=== PATIENT | female | born 1995 | race African-American/Black ===

== ENCOUNTER 2016-09-05 07:00 | Outpatient (CLI) | payer OTHER ==
[~2016-09-05] VITALS: Ht 167.6 cm; Wt 75.0 kg
[2016-09-05 07:11] VITALS: BP 123/78
== END 2016-09-05 08:08 | disposition home or self-care (01) ==
LOC: M LDO 07:00
PROVIDERS: ATTEND Obstetrics & Gynecology
DX: O47.1 False labor at or after 37 completed weeks of gestation (principal); Z3A.38 38 weeks gestation of pregnancy

== ENCOUNTER 2016-09-05 11:10 | Inpatient (IN) | payer OTHER ==
[~2016-09-05] VITALS: Ht 167.6 cm; Wt 75.0 kg
[2016-09-05] VITALS (35 sets, daily range): BP systolic 116–143; BP diastolic 60–98
[2016-09-05] MEDS ORDERED: LACTATED RINGER'S 1000 ML IV STA (12:08)
[2016-09-05] MEDS ORDERED: LR 1,000 ML IV SCH (12:08)
[2016-09-05 12:26] LABS: MEAN CORPUSCULAR HEMOGLOBIN 28.4 pg (27.0-33.0); MEAN CORPUSCULAR HGB CONC 33.1 g/dl (32.0-36.5); MEAN CORPUSCULAR VOLUME 85.9 fl (80.0-96.0); RED CELL DISTRIBUTION WIDTH 14.2 % (11.5-14.5); WHITE BLOOD COUNT 13.4 K/mm3 (4.0-10.0)
[2016-09-05] MEDS ORDERED: FENTANYL 2MCG/ML ROPIVACAINE 0.2% IN 0.9% NACL 200ML IVBAG As Ordered ONE (13:05)
[2016-09-05] MEDS ORDERED: ePHEDrine SULFATE 25 MG/5 ML(5MG/ML) SYRINGE IV PRN (14:00)
[2016-09-05] MEDS ORDERED: LACTATED RINGER'S 1000 ML IV PRN (14:00)
[2016-09-05] MEDS ORDERED: diphenhydrAMINE INJ 50MG/ML VIAL (J1200) IV PRN (14:00)
[2016-09-05] MEDS ORDERED: REFRIGERATOR IV KEYS XX PRN (14:00)
[2016-09-05] MEDS ORDERED: EPIDURAL COMMENT XX SCH (14:00)
[2016-09-05] MEDS ORDERED: NALOXONE INJ 0.4 MG/1 ML VIAL (J2310) IV PRN (14:00)
[2016-09-05] MEDS ORDERED: ONDANSETRON 4MG/2ML VIAL (J2405) IV PRN (14:00)
[2016-09-05] MEDS ORDERED: FENTANYL/ROPIVACAINE/NACL BAG 200 ML EPIDURAL SCH (14:00)
[2016-09-05] MEDS ORDERED: EPIDURAL/PCA KEYS XX PRN (14:00)
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
--- NOTE | 2016-09-05 15:49 | IPNPDOC ---
Text Note Date of Service The patient was seen on 09/05/16. NOTE after epidural checked by RN 2 hrs ago, was 4-5 cm. NST Cat 1, reg ctx's Cx 6/100/0, AROM clear doing well recheck in 2 hrs,sooner prn Sessions VS,Arlin, I+O VS, Arlin, I+O Laboratory Tests 09/05/16 12:16 Red Blood Count 3.95 L, Mean Corpuscular Volume 85.9, Mean Corpuscular Hemoglobin 28.4, Mean Corpuscular Hemoglobin Concent 33.1, Red Cell Distribution Width 14.2 SESSIONS,BOB Rivera MD September 05, 2016 15:49
--- NOTE | 2016-09-05 18:08 | IPNPDOC ---
Text Note Date of Service The patient was seen on 09/05/16. NOTE NST Cat 1, reg ctx's Cx 9/100/+1 doing well recheck in 1-2 hrs,sooner prn Sessions VS,Arlin, I+O VSArlin I+O Laboratory Tests 09/05/16 12:16 Red Blood Count 3.95 L, Mean Corpuscular Volume 85.9, Mean Corpuscular Hemoglobin 28.4, Mean Corpuscular Hemoglobin Concent 33.1, Red Cell Distribution Width 14.2 SESSIONS,BOB Rivera MD September 05, 2016 18:08
--- NOTE | 2016-09-05 19:48 | IPNPDOC ---
Text Note Date of Service The patient was seen on 09/05/16. NOTE FHT Cat 1 Cx C/C/+2 start pushing when returns from home (soon) Sessions VS,Arlin, I+O VSArlin I+O Laboratory Tests 09/05/16 12:16 Red Blood Count 3.95 L, Mean Corpuscular Volume 85.9, Mean Corpuscular Hemoglobin 28.4, Mean Corpuscular Hemoglobin Concent 33.1, Red Cell Distribution Width 14.2 SESSIONS,BOB Rivera MD September 05, 2016 19:48
[2016-09-05] MEDS ORDERED: OXYTOCIN 30 UNITS IN 0.9% NaCl 500ML IV BAG (J2590) As Ordered ONE (20:51)
--- NOTE | 2016-09-05 20:53 | IPNPDOC ---
Text Note Date of Service The patient was seen on 09/05/16. NOTE NST Cat 1 Cx /-1, not much change from ~4-5 hrs ago Start pitocin, recheck in 3-4 hrs. Sessions VS,Arlin, I+O VSArlin I+O Laboratory Tests 09/05/16 12:16 Red Blood Count 3.95 L, Mean Corpuscular Volume 85.9, Mean Corpuscular Hemoglobin 28.4, Mean Corpuscular Hemoglobin Concent 33.1, Red Cell Distribution Width 14.2 BOB SARGENT MD September 05, 2016 20:53
[2016-09-05] MEDS ORDERED: OXYTOCIN DRIP 30 UNITS in APPROPRIATE DILUENT 1 EA IV SCH (22:21)
--- NOTE | 2016-09-05 22:27 | DNPDOC ---
[facility] Delivery Note Delivery Note DATE OF DELIVERY: September 05, 2016 at 11:57 PREDELIVERY DIAGNOSIS: 38+2/7 weeks' gestation and labor. POST DELIVERY DIAGNOSIS: Delivered. PROCEDURE: Spontaneous vaginal delivery CAMPUS AIDE: ANESTHESIA: Epidural ESTIMATED BLOOD LOSS: 200 mL. FINDINGS: 7 pound 9 ounce male , Score 8/9 DELIVERY SUMMARY: Pushed well for ~2 hrs. Vtx del'd w/o delay and a tight very thick nuchal cord noted. Could not reduce it. Deli'd through it and ant/post shoulder followed w/o delay. To abdomen. Cord C/C by FOB. Cord blood. Placenta intact with minimal traction. fundal massage and pitocin going wide open. 2nd degr lac and extension of this up inner right labia majora noted. All repaired with 3-0 vicryl in standard fasion. Good cosmesis/hemostasis. BOB SARGENT MD September 05, 2016 22:27
[2016-09-05] MEDS ORDERED: MEASLES,MUMPS,RUBELLA VACCINE INJ (MMR-II) (90707) SC SCH (22:30)
[2016-09-05] MEDS ORDERED: RHOGAM 300 MCG (1500 IU) INJ (J2790) IM SCH (22:30)
[2016-09-05] MEDS ORDERED: DIBUCAINE 1% OINTMENT 30GM TOP PRN (22:30)
[2016-09-05] MEDS ORDERED: METOCLOPRAMIDE INJ 10MG/2ML VIAL (J2765) IV PRN (22:30)
[2016-09-05] MEDS ORDERED: ACETAMINOPHEN TAB 650MG DOSE (2X325MG) PO PRN (22:30)
[2016-09-05] MEDS: IBUPROFEN 800 MG TAB PO PRN (23:24)
[2016-09-06 00:55] VITALS: BP 127/72
[2016-09-06 06:44] VITALS: BP 123/61
--- NOTE | 2016-09-06 07:00 | IPNPDOC ---
Text Note Date of Service The patient was seen on 09/06/16. NOTE PPD1 prog note States feeling well, no complaints. No heavy VB. Pain controlled. Voiding, ambulatory. Bonding well and brst feeding. VSSAF CTAB RRR Ut at U-2, firm Ext no CCE a/p: Doing well. LIkely d/c tomorrow evening. Sessions Arlin CHAPMAN, I+O VSArlin I+O Laboratory Tests 09/05/16 12:16 Red Blood Count 3.95 L, Mean Corpuscular Volume 85.9, Mean Corpuscular Hemoglobin 28.4, Mean Corpuscular Hemoglobin Concent 33.1, Red Cell Distribution Width 14.2 Vital Signs Date Time Temp Pulse Resp B/P (MAP) Pulse Ox O2 Delivery O2 Flow Rate FiO2 09/06/16 06:44 98.8 107 18 123/61 (81) I&O- Last 24 Hours up to 6 AM 09/06/16 06:00 Intake Total 1625 ml Output Total 1350 ml Balance 275 ml SESSIONSBOB MD September 06, 2016 07:00
[2016-09-06] MEDS: PRENATAL VITAMIN TAB PO SCH (07:52)
[2016-09-06] MEDS: DOCUSATE SODIUM 100 MG CAP PO SCH ×2 (07:52→19:48)
[2016-09-06] MEDS: IBUPROFEN 800 MG TAB PO PRN ×2 (07:53→19:49)
[2016-09-06 18:00] VITALS: BP 125/70
[2016-09-07 06:27] VITALS: BP 127/81
[2016-09-07] MEDS ORDERED: COLA100C3 PO (07:09)
[2016-09-07] MEDS ORDERED: ACET50TA PO (07:11)
[2016-09-07] MEDS ORDERED: IBUP-1114 PO (07:11)
[2016-09-07] MEDS ORDERED: PRENTAB9 PO (07:11)
[2016-09-07] MEDS: DOCUSATE SODIUM 100 MG CAP PO SCH (09:00)
[2016-09-07] MEDS: PRENATAL VITAMIN TAB PO SCH (09:00)
== END 2016-09-07 12:20 | disposition home or self-care (01) | DRG 775 ==
LOC: M LDO 11:10 → M LDI 11:57 → M OBS 09-06 00:54
PROVIDERS: ADMIT Obstetrics & Gynecology; ATTEND Obstetrics & Gynecology
PROC: 10E0XZZ Delivery of Products of Conception, External Approach (ICD-10-PCS; principal; 2016-09-05)
PROC: 0KQM0ZZ Repair Perineum Muscle, Open Approach (ICD-10-PCS; 2016-09-05)
DX: O70.1 Second degree perineal laceration during delivery (principal); Q60.2 Renal agenesis, unspecified; Z37.0 Single live birth; Z3A.38 38 weeks gestation of pregnancy; O69.2XX0 Labor and delivery complicated by other cord entanglement, with compression, not applicable or unspecified